=== PATIENT | female | born 1955 | race Caucasian/White ===

== ENCOUNTER → 2016-07-21 | Outpatient (CLI) | payer BC ==
[~2016-07-21] MED LIST: AMOXICILLIN 8751 TAB PO; LEVAQUIN 5500 MG/TA1 PO; LEVOTHYROXINE PO; LIPITOR 10MG10 MG PO; NIACIN 100100 MG/TAB PO; PRENATAL VITAMI1 TAB PO; SYNTHROID0.112 MG PO; SYNTHROID0.137 MG PO
== END ==
LOC: MC.RAD 15:55
DX: Z12.31 Encounter for screening mammogram for malignant neoplasm of breast (principal)

== ENCOUNTER 2017-06-11 08:08 | Emergency (ER) | payer BC ==
[~2017-06-11] VITALS: Ht 157.5 cm; Wt 77.3 kg
[2017-06-11 08:10] VITALS: TEMP 99.7
[2017-06-11 08:45] LABS: BASO % 0.6 % (0.0-2.0); EOS # 0.1 (0.0-0.7); EOS % 0.7 % (0-4.0); GRAN # 4.8 (1.4-6.5); GRAN % 69.9 % (42.2-75.2); HEMATOCRIT 42.9 % (37.0-47.0); HEMOGLOBIN 14.3 g/dl (12.5-16.0); LYMPH # 1.5 (1.2-3.4); LYMPH % 21.7 % (20.0-51.0); MEAN CELL VOLUME 89 fl (80.0-100.0); MEAN CORPUSCULAR HEMOGLOBIN 30 pg (27.0-31.0); MEAN CORPUSCULAR HGB CONC 33 g/dl (33.0-37.0); MEAN PLATELET VOLUME 10.4 fl (7.4-10.4); MONO # 0.5 (0.1-0.6); MONO % 6.8 % (1.7-9.3); PLATELET COUNT 254 K/mm3 (130-400); RED BLOOD COUNT 4.85 M/mm3 (4.10-5.30); WHITE BLOOD COUNT 6.8 K/mm3 (4.8-10.8)
[2017-06-11 08:54] LABS: ADJUSTED CALCIUM 9.4 mg/dL (8.4-10.2); ALANINE AMINOTRANSFERASE 17 U/L (9-52); ALBUMIN 4.8 gm/dL (3.5-5.0); ALKALINE PHOSPHATASE 83 U/L (50-136); ANION GAP 11 mmol/L (7-16); BILIRUBIN,TOTAL 0.5 mg/dL (0.0-1.0); BLOOD UREA NITROGEN 14 mg/dL (7-17); CARBON DIOXIDE 24 mmol/L (22-30); CHLORIDE 104 mmol/L (98-107); CREATININE, serum 0.67 mg/dL (0.52-1.25); GLUCOSE 102 mg/dL (74-106); LIPASE 134 U/L (23-300); POTASSIUM 4.2 mmol/L (3.4-5.0); SODIUM 139 mmol/L (137-145); TOTAL PROTEIN 7.9 gm/dL (6.4-8.2)
[2017-06-11 09:08] LABS: TROPONIN-I < 0.012 ng/mL (0.000-0.034)
[2017-06-11 09:42] LABS: B-TYPE NATRIURETIC PEPTIDE 39 pg/mL (0-125)
[2017-06-11 10:56] VITALS: BP 122/80; PULSE 66
== END 2017-06-11 10:57 | disposition home or self-care (01) ==
LOC: COL.ER 08:08
PROVIDERS: Emergency Medicine
DX: M54.2 Cervicalgia (principal); M54.6 Pain in thoracic spine; E78.5 Hyperlipidemia, unspecified

== ENCOUNTER → 2017-08-17 | Outpatient (CLI) | payer BC | LOC: MC.RAD 13:19 | DX: Z12.31 Encounter for screening mammogram for malignant neoplasm of breast (principal) ==

== ENCOUNTER 2017-11-18 06:25 | Day surgery (SDC) | payer BC ==
[~2017-11-18] VITALS: Ht 157.5 cm; Wt 73.6 kg
[2017-11-18 06:43] VITALS: BP 121/79; PULSE 75; TEMP 97.8
[2017-11-18] MEDS ORDERED: SYNTHROID0.175 MG PO (06:46)
[2017-11-18 08:00] VITALS: BP 92/62; PULSE 68; TEMP 97.6
[2017-11-18 08:15] VITALS: BP 93/62; PULSE 66
[2017-11-18 08:30] VITALS: BP 96/67; PULSE 72
== END 2017-11-18 08:41 | disposition home or self-care (01) ==
LOC: SDCO 06:25
DX: K57.30 Diverticulosis of large intestine without perforation or abscess without bleeding (principal); E03.9 Hypothyroidism, unspecified; E78.00 Pure hypercholesterolemia, unspecified; M85.80 Other specified disorders of bone density and structure, unspecified site
CPT/HCPCS: OP; J2250; J3010; J7030

== ENCOUNTER → 2018-08-22 | Outpatient (CLI) | payer BC ==
[~2018-08-22] MED LIST changes: +SYNTHROID0.175 MG PO
== END ==
LOC: MC.RAD 09:51
DX: Z01.89 Encounter for other specified special examinations (principal)

== ENCOUNTER → 2021-02-06 | Outpatient (CLI) | payer BC | LOC: COL.RAD 09:45 | DX: D48.5 Neoplasm of uncertain behavior of skin (principal) ==

== ENCOUNTER → 2022-03-02 | Outpatient (CLI) | payer BC | LOC: MC.RAD 07:53 | DX: Z12.31 Encounter for screening mammogram for malignant neoplasm of breast (principal) ==